=== PATIENT | male | born 1985 | race Caucasian/White ===

== ENCOUNTER 2020-08-04 03:20 | Emergency (ER) | payer OTHER ==
[~2020-08-04] VITALS: Ht 167.6 cm; Wt 68.0 kg
--- NOTE | 2020-08-04 03:20 | NUR ---
PT BIB [facility], PREBOOK. TAKEN TO CHAIR A
[2020-08-04 03:30] VITALS: BP 132/76
--- NOTE | 2020-08-04 03:35 | NUR ---
Dr. Bal examining patient.
[2020-08-04 03:45] VITALS: BP 132/76
--- NOTE | 2020-08-04 03:45 | NUR ---
PATIENT BIB [facility]ICE DEPT. PATIENT EXAMINED BY DR. BEGUM. PATIENT MEDICALLY CLEARED AND RELEASED IN CUSTODY IN STABLE CONDITION. ORIGINAL PRE-BOOK FORM GIVEN TO OFFICER [id number]
--- NOTE | 2020-08-04 03:45 | NUR ---
Patient discharged with v/s stable. Written and verbal after care instructions given and explained. Patient verbalized understanding. Police with in custody. All questions addressed prior to discharge. Advised to follow up with PMD.
== END 2020-08-04 03:45 ==
LOC: MED 03:20
DX: S60.511A Abrasion of right hand, initial encounter (principal); F10.129 Alcohol abuse with intoxication, unspecified; Z02.89 Encounter for other administrative examinations; Y90.9 Presence of alcohol in blood, level not specified; V49.9XXA Car occupant (driver) (passenger) injured in unspecified traffic accident, initial encounter; Y93.89 Activity, other specified; Y92.89 Other specified places as the place of occurrence of the external cause; Y99.8 Other external cause status
CPT/HCPCS: 99283